=== PATIENT | male | born 1995 | race Hispanic/Latino ===

== ENCOUNTER 2019-06-28 17:11 | Observation (INO) | payer SELFPAY ==
[2019-06-28] MEDS ORDERED: Albuterol Sulfate 2.5 mg/0.5 ml Neb ONE (17:28)
[2019-06-28 17:35] LABS: Actual Bicarbonate (HCO3a) 19.3 mEq/L (22-28); Analyzer IN Cardio ER; Base Excess (BEa) -3.1 mEq/L (-2.0 to +3.0); CO2 Tension 28.4 mmHg (35.0-45.0); Calcium, Ionized 1.17 mmol/L (1.12-1.30); Carboxyhemoglobin (COHb) 0.2 gm% (0.0-3.0); Hemoglobin (Hb) 15.9 g/dL (14.0-18.0); pH, Arterial 7.45 (7.35-7.45)
[2019-06-28 17:37] LABS: Puncture Site RRA
[2019-06-28 17:38] LABS: #Basophils 0.1 thou/uL (0.0-0.2); #Eosinphils 0.4 thou/uL (0.0-0.7); #Lymphocytes 5.4 thou/uL (1.20-3.40); #Monocytes 1.1 thou/uL (0.11-0.59); #Neutrophils 8.5 thou/uL (1.40-6.50); %Basophils 0.6 % (0.0-1.0); %Eosinophils 2.4 % (0.0-10.0); %Lymphocytes 34.6 % (21.0-51.0); %Monocytes 7.4 % (0.0-10.0); Hemoglobin 15.5 g/dL (14.0-18.0); Mean Corpuscular HGB CONC 34.3 g/dL (32.0-36.0); Mean Corpuscular Hemoglobin 29.9 pg (27.0-31.0); Mean Corpuscular Volume 87.3 fL (78.0-98.0); Mean Platelet Volume 7.4 fL (7.4-10.4); Platelet Count 365 thou/uL (130-400); RBC Distribution Width 11.7 % (11.5-14.5); Red Blood Cell (RBC) Count 5.18 mill/uL (4.70-6.10); White Blood Cell (WBC) Count 15.5 thou/uL (4.8-10.8)
--- NOTE | 2019-06-28 17:44 | RAD ---
RADIOGRAPH CHEST 1 VIEW: DATE: 06/28/2019 HISTORY: 24-year-old male with dyspnea and diminished breath sounds. FINDINGS: The visualized lung gonzalez are clear. The cardiomediastinal silhouette and hilar shadows are normal. The lateral costophrenic angles are sharp. The osseous structures appear normal. There is no pneumothorax. IMPRESSION: Negative.
[2019-06-28 17:56] LABS: ALT (SGPT) 38 U/L (8-55); AST (SGOT) 19 U/L (5-34); Albumin 4.2 g/dL (3.5-5.0); Alkaline Phosphatase 129 U/L (40-150); Anion Gap 13 mmol/L (10-20); BUN (Urea Nitrogen) 10 mg/dL (8.9-20.6); Bilirubin, Total 0.4 mg/dL (0.2-1.2); Calc. Creatinine Clearance 0 mL/min (70-130); Calcium 9.3 mg/dL (7.8-10.44); Carbon Dioxide 21 mmol/L (22-29); Chloride 106 mmol/L (98-107); Estimated GFR-MDRD Greater than 90; Globulin 3.8 g/dL (2.4-3.5); Glucose 128 mg/dL (70-105); Potassium 3.3 mmol/L (3.5-5.1); Sodium 137 mmol/L (136-145)
--- NOTE | 2019-06-28 20:51 | PDOC.FPRHP ---
- History of Present Illness Chief Complaint: asthma attack History of Present Illness: Reports asthma attack earlier today. Initial symptoms started yesterday with audible wheezing, coughing, and SOB. Progressed to nausea and vomiting. Unable to sleep last night. Has to sleep sitting up. Reports not using inhaler frequently as he should yesterday and last night. Progressed today to full attack with respiratory distress. Patient was at work and was unable to "catch my breath." Became hot, fatigued, and required tripoding to help with breathing. Few episodes of vomiting at work. Co-worker took him to local ambulance station that was 12 miles away. Has been without regular medication for 6 months due to loss of insurance. Hospitalized 12 or more times for asthma. Last admission 2 years ago. No history of intubation but has remained in the ICU on bipap at age 8 to 9 for 22 days. Last seen by MD was 2 to 3 years ago. ED Course: EMS gave 3 DuoNebs, 0.3mg IM magnesium, 2g magnesium sulfate, solumedrol. Satting 94% on RA but placed on CPAP. Placed on BiPAP in ED. ABG w/ mild abnormalities. Removed from BiPAP and satting high 90s on RA. - Allergies/Adverse Reactions Allergies Allergy/AdvReac Type Severity Reaction Status Date / Time amoxicillin [From Augmentin] Allergy Verified 06/28/19 21:38 clavulanic acid Allergy Verified 06/28/19 21:38 [From Augmentin] - Home Medications Medication Instructions Recorded Confirmed Type Albuterol Sulfate [Albuterol 8.5 gm IH Q4HR PRN #1 hfa.aer.ad 06/29/19 Rx Sulfate Hfa] Albuterol Sulfate [Proair HFA] 2 puff INH Q4HR PRN #1 hfa.aer.ad 06/29/19 Rx Mometasone/Formoterol 100/5 2 puff INH BID #1 aer 06/29/19 Rx [Dulera 100 Mcg/5 Mcg Inhaler] Mometasone/Formoterol 100/5 2 puff INH BID-RT #1 aer 06/29/19 Rx [Dulera 100 Mcg/5 Mcg Inhaler] Montelukast Sodium 10 mg PO DAILY #30 tablet 06/29/19 Rx Montelukast Sodium [Singulair] 10 mg PO QAM #30 tab 06/29/19 Rx predniSONE 40 mg PO DAILY #8 tab 06/29/19 Rx predniSONE 40 mg PO DAILY 4 Days #8 tab 06/29/19 Rx - History PMHx: - Asthma, uncontrolled moderate, history of 12 or more hospitalizations in lifetime, no intubations - Allergies to outdoor allergens PSHx: - None FHx: Mother with asthma. Father with DM, HLD, HTN. Brother with asthma. Brother with scoliosis. Cancer in paternal grandfather but type unknown. Social: - Lives with family - Works on [employer] for the past 2-3 months. Wears a respirator at work. Has not noticed increased inhaler use since working. - Denies smoking, vaping, smoking drugs, alcohol, and other recreational drugs. Secondhand nicotine exposure to friends that vape. - Pets in house: Guinea Pig, snakes, lizards - Currently uninsured. Medications prior to losing insurance: Zyrtec, Advair, Proair, Flonase Allergic to augmentin - causes rash - Review of Systems General: denies: fever/chills, weight/appetite/sleep changes, fatigue Eyes: denies: eye pain, vision changes ENT: denies: nasal congestion, rhinorrhea Respiratory: reports: cough, congestion, shortness of breath, exercise intolerance Cardiovascular: reports: orthopnea. denies: chest pain, edema Gastrointestinal: reports: nausea, vomiting. denies: diarrhea, constipation, abdominal pain Genitourinary: denies: dysuria Skin: denies: rashes, lesions Musculoskeletal: denies: pain Neurological: denies: weakness Psychological: denies: anxiety, depression - Vital signs BP: 141/82 HR: 92 RR: 17 Tmax: 98.5 Pox: 98% on RA Wt: 90.7 kg - Physical Exam Constitutional: NAD, awake, alert and oriented, well developed, other (obese) HEENT: normocephalic and atraumatic, PERRLA, EOMI, conjunctiva clear, no scleral icterus, grossly normal vision, TM's clear and intact (L ear w/ otosclerosis), grossly normal hearing, normal nasal mucosa, MMM, oropharynx clear, good dention -HEENT: very small airway, tonsils 3+, uvula midline Neck: supple, FROM, trachea midline, no LAD, no thyromegaly Chest: no-tender to palpation Heart: RRR, no murmurs/rubs/gallops, pulses present, no edema -Heart: Split S1 Lungs: CTAB (however, possible limited air movement. No wheezing heard.), no respiratory distress, no rales/rhonchi, no wheezing, no retractions Abdomen: soft, non-tender, bowel sounds present, no masses/distention Musculoskeletal: normal structure, normal tone Neurological: no focal deficit Skin: no rash/lesions, good turgor, capillary refill <2 seconds, no jaundice Heme/Lymphatic: no unusual bruising or bleeding, no purpura, no petechia Psychiatric: normal mood and affect, intact recent and remote memory FMR H&P: Results - Labs Result Diagrams: 06/28/19 17:26 06/29/19 04:42 Lab results: WBC 15.5 thou/uL (4.8-10.8) H 06/28/19 17:26 Hgb 15.5 g/dL (14.0-18.0) 06/28/19 17:26 Hct 45.3 % (42.0-52.0) 06/28/19 17:26 MCV 87.3 fL (78.0-98.0) 06/28/19 17:26 Plt Count 365 thou/uL (130-400) 06/28/19 17:26 Neutrophils % 55.0 % (42.0-75.0) 06/28/19 17:26 ABG pH 7.45 (7.35-7.45) 06/28/19 17:35 ABG pCO2 28.4 mmHg (35.0-45.0) L 06/28/19 17:35 ABG pO2 96.0 mmHg (80.0-100.0) 06/28/19 17:35 Sodium 137 mmol/L (136-145) 06/28/19 17:26 Potassium 3.3 mmol/L (3.5-5.1) L 06/28/19 17:26 Chloride 106 mmol/L (98-107) 06/28/19 17:26 Carbon Dioxide 21 mmol/L (22-29) L 06/28/19 17:26 BUN 10 mg/dL (8.9-20.6) 06/28/19 17:26 Creatinine 0.95 mg/dL (0.7-1.3) 06/28/19 17:26 Glucose 128 mg/dL (70-105) H 06/28/19 17:26 Calcium 9.3 mg/dL (7.8-10.44) 06/28/19 17:26 Total Bilirubin 0.4 mg/dL (0.2-1.2) 06/28/19 17:26 AST 19 U/L (5-34) 06/28/19 17: ALT 38 U/L (8-55) 06/28/19 17:26 Alkaline Phosphatase 129 U/L (40-150) 06/28/19 17:26 B-Natriuretic Peptide Less than 10.0 pg/mL (0-100) 06/28/19 17: Serum Total Protein 8.0 g/dL (6.0-8.3) 06/28/19 17: Albumin 4.2 g/dL (3.5-5.0) 06/28/19 17:26 - EKG Interpretation EKG: Sinus tachycardia. - Radiology Interpretation Chest x-ray Status: image reviewed by me, report reviewed by me Additional comment: negative FMR H&P: A/P - Plan 24-year-old w/ history of asthma and allergies admitted for: Asthma exacerbation: - Patient currently on RA but was on BiPAP 30 minutes prior to our evaluation - Pt sounds congested and may have limited air movement w/o wheezing, so would like to observe respiratory status. - Albuterol Nebs q2h scheduled and q2h prn - Will give 2gm IV magnesium sulfate as piggy back on 1 liter of LR at 150mL/hr - Begin prednisone 40mg PO tomorrow. - Patient may have regular diet Hypokalemia: - 3.3 on BMP. - Will monitor and recheck in the morning. Possible side effect of DuoNebs given by EMS and in ED Uninsured: - Case management consulted for help obtaining medications and follow up since patient recently moved here from [place] Possible TOOTIE: - Patient reports snoring at night and his airway looks like it could be easily obstructed during sleep. Pt would benefit from outpatient workup for this. Code: FULL VTE PPx: SCDs. Yani score 1. No pharm ppx indicated GI ppx: none Emilie Frias MD PGY1 Disposition/LOS: Observe overnight on Medical Floor. FMR H&P: Upper Level - Plan Date/Time: 06/28/192034 This is a 24 yo male with a pmhx of asthma who complains of shortness of breath and wheezing, who has been out asthma medications for six months. VSS PE: CTAB, slightly decreased at bases RRR, 1/6 systolic murmur versus splitting of s1 no edema scarring of ear drumb in left ear enlarged tonsils Labs wbc 15 ABG: ph 7.45, pco2 28, bicarb 19, po2 96 CXR: no acute process A/P: Acute asthma exacerbation- We admitted him for an acute asthma exacerbation. He was initially on bipap in the ED with abg showing a respiratory alkalosis. He had clear breath sounds and not in distress when we saw him off the bipap. His vitals were wnl during our visit. He received solumedrol, albuterol nebs, and magnesium in the ER. We admitted him to medical obs and started him on q2h albuterol neb, with q1h nebs prn, gave an additional bolus of magnesium, and started him of prednisone in the am. He needs maintenance treatment with advair for example, but d/t lack of insurance, may have difficulty paying for this. We consulted case management to assist with cost of medications. We have started him back on maintenance medications of dulera and singulair as we dont have advair in the hospital. We will check on him every 2-3 hours to evaluate his respiratory status. Zuleima Curry MD, PGy-3 Addendum - Attending - Attending Attestation Date/Time: 06/28/192050 I personally evaluated the patient and discussed the management with Dr. Frias and Dr. Priest I agree with the History, Examination, Assessment and Plan documented above with any addition or exceptions noted below. Mild, uncontrolled asthma. Has not been taking medications. Out of insurance for 2 years. 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 Progressive asthma attack over past 2 days. Required BiPAP in ER. Admit and monitor closely. Mahogany breathing treatments q 2. Space as able. Continue systemic steroids. Discussed work related exposure concerns. Patient has habit of down playing symptoms. Has not been about to function well over the past week per mother. Needs outpatient follow up. HFA suggested. Ana Paula
[2019-06-28 21:40] VITALS: BMI 40.2
[2019-06-28] MEDS ORDERED: Acetaminophen 650 MG Suppository PR PRN (22:08)
[2019-06-28] MEDS ORDERED: Acetaminophen 325 MG TAB PO PRN (22:08)
[2019-06-28] MEDS ORDERED: Loperamide HCl 2 MG CAP PO PRN (22:08)
[2019-06-28] MEDS ORDERED: Guaifenesin DM 100-10/5 ML UDCUP PO PRN (22:08)
[2019-06-28] MEDS ORDERED: Lactated Ringer's 1,000 ML IV SCH (22:08)
[2019-06-28] MEDS ORDERED: Albuterol Sulfate 2.5 mg/3 ml Neb NEB PRN (22:08)
[2019-06-28] MEDS ORDERED: Senokot S 8.6-50 MG TAB PO PRN (22:08)
[2019-06-28] MEDS ORDERED: Ondansetron PF 4 MG/2 ML Vial IVP PRN (22:08)
[2019-06-28] MEDS ORDERED: Ondansetron ODT 4 MG TAB PO PRN (22:08)
[2019-06-28] MEDS ORDERED: Calcium Carbonate 500 MG ChewTAB PO PRN (22:08)
[2019-06-28] MEDS ORDERED: Magnesium 2 GM/50 ML 2 GM in Premix Bag 1 BAG IVPB SCH (22:30)
[2019-06-28] MEDS: Albuterol Sulfate 2.5 mg/3 ml Neb NEB SCH (22:34)
[2019-06-29] MEDS: Albuterol Sulfate 2.5 mg/3 ml Neb NEB SCH ×5 (00:13→14:49)
[2019-06-29 05:28] LABS: Anion Gap 12 mmol/L (10-20); BUN (Urea Nitrogen) 10 mg/dL (8.9-20.6); Calc. Creatinine Clearance 199 mL/min (70-130); Calcium 9.5 mg/dL (7.8-10.44); Carbon Dioxide 21 mmol/L (22-29); Chloride 106 mmol/L (98-107); Estimated GFR-MDRD Greater than 90; Glucose 259 mg/dL (70-105); Potassium 4.3 mmol/L (3.5-5.1); Sodium 135 mmol/L (136-145)
[2019-06-29] MEDS ORDERED: Mometasone/Formoterol 120 PUFF INHALER INH SCH (06:30)
[2019-06-29 07:00] LABS: Hemoglobin A1c 5.3 % (4.0-6.0)
--- NOTE | 2019-06-29 08:38 | PDOC.FM ---
- Subjective Subjective: Pt reports feeling much improved from yesterday since admission. He reports some rest overnight and has no new complaints at this time. no fever/chills no cp no nausea - Objective Vital Signs & Weight: Vital Signs (12 hours) Temp Pulse Resp BP BP Pulse Ox 06/29/19 07:32 97.8 F 87 20 137/77 97 06/29/19 06:45 98 06/29/19 06:44 68 16 98 06/29/19 06:41 113 H 16 98 06/29/19 03:30 97.7 F 99 20 134/69 98 06/29/19 02:55 89 16 98 06/29/19 00:13 97 16 98 06/28/19 22:34 99 16 97 06/28/19 21:35 98.6 F 89 23 H 140/85 98 Weight Weight 113.126 kg I&O: 06/28/19 06/29/19 06/30/19 06:59 06:59 06:59 Intake Total 968 Balance 968 Result Diagrams: 06/28/19 17:26 06/29/19 04:42 Phys Exam - Physical Examination Constitutional: NAD HEENT: moist MMs, sclera anicteric Neck: no JVD, supple getting treatment during exam, mild wheezing bilaterally, good air mvmt Cardiovascular: RRR possible systolic murmur, will re-evaluate when not getting neb Gastrointestinal: soft Musculoskeletal: no edema, pulses present Neurological: normal sensation, moves all 4 limbs Psychiatric: normal affect Skin: no rash, normal turgor Dx/Plan (1) Asthma exacerbation Code(s): J45.901 - UNSPECIFIED ASTHMA WITH (ACUTE) EXACERBATION Status: Acute (2) Hypokalemia Code(s): E87.6 - HYPOKALEMIA Status: Acute (3) Murmur, cardiac Code(s): R01.1 - CARDIAC MURMUR, UNSPECIFIED Status: Acute - Plan Plan: Asthma exacerbation A- Patient currently on RA and doing well with nubulizations but was on BiPAP 30 minutes prior eval of FM team. s/p magnesium in ED. Will need to escalate therapy on DC from prn albuterol alone. Pt is uncontrolled using albuterol at least 4 times weekly prior to running out of meds. P- Albuterol Nebs PRN -dulera BID -prednisone 40mg daily -montelukast PO daily Uninsured -Case management consulted for help obtaining medications and follow up since patient recently moved here from [place]. Pt will need inhalers on DC. Possible TOOTIE -Patient reports snoring at night, considering obesity will recommend outpt f/u and sleep study Hypokalemia, resolved Code: FULL VTE PPx: SCDs. Yani score 1. No pharm ppx indicated Addendum - Attending - Attending Attestation Date/Time: 06/29/19 2344 I personally evaluated the patient and discussed the management with Dr. Peterson. I agree with the History, Examination, Assessment and Plan documented above with any addition or exceptions noted below. Meir is doing well. Clear on exam. needs maintenance therapy outpt to prevent asthma attacks.
[2019-06-29] MEDS ORDERED: Montelukast Sodium 10 mg Tablet PO SCH (09:00)
[2019-06-29] MEDS ORDERED: predniSONE 20 MG TAB PO SCH (09:00)
[2019-06-29 16:07] VITALS: BP 133/81; TEMP 98.2
--- NOTE | 2019-07-03 08:47 | DIS ---
DATE OF ADMISSION: 06/28/2019 DATE OF DISCHARGE: 06/29/2019 RESIDENT: Logan Peterson MD CONSULTS: None. PROCEDURES: Chest x-ray on 06/28/2019. Impression: Negative, within normal limits. DISCHARGE MEDICATIONS: 1. Dulera two inhales b.i.d. 2. Singulair 10 mg p.o. q.a.m. 3. Prednisone 40 mg p.o. daily x4 days. 4. Albuterol ProAir two puffs inhaled q.4 hours p.r.n. DISCONTINUED MEDICATIONS: None. PRIMARY DIAGNOSIS: Asthma exacerbation. SECONDARY DIAGNOSIS: Hypokalemia and possible obstructive sleep apnea. HISTORY OF PRESENT ILLNESS/HOSPITAL COURSE: This is a 24-year-old male who presented from an outside ER in respiratory distress secondary to asthma exacerbation. 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 On presentation to the ER, he was given prednisone, magnesium, and mobilizations, was admitted for exacerbation. The patient showed rapid recovery with medications and was stable throughout night. In the morning, the patient continued to have excellent air movement on exam with nebulizations. Case management was consulted as patient is uninsured and unable to afford inhalation. Seeing that the patient had been on albuterol alone before, but was having symptoms of at least moderate persistent asthma. It was deemed the patient should be started on long-acting inhaled corticosteroid as well as long-acting beta-agonist in addition to his albuterol p.r.n. and so, the patient was discharged with these medications as listed above. DISPOSITION: Stable. DISCHARGE INSTRUCTIONS: 1. Location: Home. 2. Activity: No restrictions. 3. Followup: With [facility] in 3 days. 4. Diet: No restrictions. Job ID: [id number]
== END 2019-06-29 17:12 | disposition home or self-care (01) ==
LOC: ERS 17:11 → 2SW 20:00
PROVIDERS: ADMIT Student in an Organized Health Care Education/Training Program; ATTEND Student in an Organized Health Care Education/Training Program
DX: J45.901 Unspecified asthma with (acute) exacerbation (principal); E87.6 Hypokalemia; R01.1 Cardiac murmur, unspecified; Z88.0 Allergy status to penicillin; Z88.8 Allergy status to other drugs, medicaments and biological substances
CPT/HCPCS: 36415; 71045; 80048; 80053; 82805; 83036; 83735; 83880; 84484; 85025; 93005; 94640; 96361; 96365; G0378; J3475; J7512; J7611; J7620